=== PATIENT | male | born 1965 | race African-American/Black ===

== ENCOUNTER 2016-08-13 00:28 | Emergency (ER) | payer OTHER ==
[~2016-08-13] VITALS: Ht 172.7 cm; Wt 99.8 kg
[~2016-08-13 00:28] MED LIST: CIPRO 500MG TA500 MG PO; FLEXERIL10 MG PO; INDOMETHACIN50 MG PO; MOBIC 15MG15 MG PO
[2016-08-13 02:25] VITALS: BP 152/82
--- NOTE | 2016-08-13 02:28 | ED THROAT/DENTAL COMPLAINT ---
History of Present Illness General Chief Complaint: Sore Throat, Dental Pain Stated Complaint: "LOWER RT SIDE TOOTH PAIN" Source: patient Exam Limitations: no limitations Vital Signs & Intake/Output Vital Signs & Intake/Output Vital Signs Date Time Temp Pulse Resp B/P B/P Pulse O2 O2 Flow FiO2 Mean Ox Delivery Rate 08/13 224 97.8 88 18 152/82 98 Room Air 08/13 022 98 Room Air 08/13 0047 98.8 81 18 157/37 97 Room Air Allergies Coded Allergies: MDX - Codeine (CODEINE) (ITCHING 03/05/15) Reconcile Medications Ciprofloxacin (Cipro) 500 MG TAB 1 TAB PO BID UTI CYCLOBENZAPRINE HCL (Flexeril) 10 MG TAB 1 TAB PO Q8H PRN MUSCLE RELAXANT Avoid operating motor vehicle or heavy machinery Meloxicam (Mobic 15MG) 15 MG TAB 1 TAB PO DAILY PRN PAIN/INFLAMMATION Triage Note: PT FROM HOME C/O DENTAL PAIN. PT STATES THAT A FEW WEEKS AGO? HE NOTICED A LOOSE TOOTH ON THE BOTTOM RIGHT SIDE OF HIS MOUTH AND TONIGHT HE DEICDED TO REMOVE THE TOOTH HIMSELF BECAUSE HE WAS "SICK OF IT" PT STATED ABOUT 1 HR AGO WAS WHEN HE TRIED TO REMOVED IT, PT STATED "I MUST HAVE HIT A NERVE OR SOMETHING BECAUSE THE PAIN IS SO BAD IT GOES DOWN AND UP MY FACE". PT IN NO DISTRESS IN TRIAGE. PT STATES HE TRIED ORAGEL AND AMBECEL TONIGHT ON THE TOOTH TO HELP WITH THE PAIN. AWAITING PROVIDER EVAL. Triage Nurses Notes Reviewed? yes HPI: Patient presents for evaluation of dental pain that began about 1 week ago. Patient states that the pain has been constant and getting severe. He states it 's an aching pain gets worse when he tries to chew. He attempted to remove a loose right lower tooth with a strain and pliers which only seemed to make the pain worse. No associated fever or cold symptoms or facial swelling. Past History Travel History Traveled to [place] past 21 day No Medical History Any Pertinent Medical History? see below for history Neurological: NONE EENT: NONE Cardiovascular: NONE Respiratory: NONE Gastrointestinal: NONE Hepatic: NONE Renal: NONE Musculoskeletal: NONE Psychiatric: NONE Endocrine: NONE Blood Disorders: NONE Cancer(s): NONE LIBRARY MEDIA ASSISTANT/Reproductive: NONE Surgical History Surgical History: non-contributory Psychosocial History What is your primary language Moh[place] Tobacco Use: Never used ETOH Use: occasional use Illicit Drug Use: denies illicit drug use Family History Hx Contributory? No Review of Systems Review of Systems Constitutional: Reports: no symptoms. EENTM: Reports: see HPI. Respiratory: Reports: no symptoms. Cardiovascular: Reports: no symptoms. GI: Reports: no symptoms. Genitourinary: Reports: no symptoms. Musculoskeletal: Reports: no symptoms. Skin: Reports: no symptoms. Neurological/Psychological: Reports: no symptoms. Hematologic/Endocrine: Reports: no symptoms. Immunologic/Allergic: Reports: no symptoms. All Other Systems: Reviewed and Negative Physical Exam Physical Exam Mouth/Throat: SEE BELOW Comments: Gen.: Well-nourished, well-developed, no acute respiratory distress. Head: Normocephalic, atraumatic. Eyes: Normal inspection bilaterally Ears: Normal inspection bilaterally Nose: Normal inspection Throat/mouth : Moist mucosa, multiple heavily decayed teeth, bicuspid of the right lower row loose with some changes consistent with gingivitis. Neck: Supple, full range of motion, no goiter Lungs: Quiet respirations Chest: Nontender Back: Normal range of motion Extremities: Normal range of motion grossly, equal radial pulses, no cyanosis clubbing or edema Neurologic: Cranial nerves grossly intact, speech is clear Skin: warm and dry Psychiatric: Calm, cooperative, no apparent delusions or hallucinations Lymphatic: No cervical lymphadenopathy Core Measures ACS in differential dx? No Severe Sepsis Present: No Septic Shock Present: No Progress Differential Diagnosis: odontogenic abscess, LOOSE TOOTH Plan of Care: Current Medications Sig/[place] Start time Last Medication Dose Stop Time Status Admin Amoxicillin 500 MG ONCE ONE 08/13 0230 AC (Amoxil) 08/13 023 Naproxen 500 MG ONCE ONE 08/13 0230 AC (Naprosyn) 08/13 0231 Hazel Vora, dental follow-up (BOWEN PEREZ,DENIA Knowles) Departure Departure Disposition: HOME OR SELF CARE Condition: Stable Clinical Impression Primary Impression: Pain, dental Referrals: PATIENT HAS NO PRIMARY CARE DR (PCP/Family) Departure Forms: Customer Survey General Discharge Information LIST- DENTAL CLINIC LIST Prescriptions: Current Visit Scripts Diclofenac Potassium 1 TAB PO TID PRN PAIN #30 TAB Penicillin V Potassium 1 TAB PO TID #21 TAB
[2016-08-13] MEDS ORDERED: DICLOFENAC POTA50 M1 PO (02:30)
[2016-08-13] MEDS ORDERED: PENICILLIN V P500 M1 PO (02:30)
== END 2016-08-13 02:39 ==
LOC: ERH 00:28
DX: K08.89 Other specified disorders of teeth and supporting structures (principal)